=== PATIENT | male | born 1970 | race Caucasian/White ===

== ENCOUNTER 2016-09-12 04:33 | Emergency (ER) | payer OTHER, BC ==
[2016-09-12] MEDS ORDERED: Albuterol Sulfate 2.5 mg/3 ml Neb ONE ×2 (05:06→05:31)
[2016-09-12] MEDS ORDERED: Magnesium Sulfate 2 GM/NS 0.9% 50 ML BAG ONE (05:06)
[2016-09-12] MEDS ORDERED: methylPREDNISolone Sod Succ/PF 125 MG/2 ML VIAL ONE (05:06)
--- NOTE | 2016-09-12 07:37 | RAD ---
PORTABLE CHEST 1 VIEW: DATE: 09/12/16. TIME: 5:03 a.m. HISTORY: Wheezing. FINDINGS: The heart size is normal. The lungs are expanded without focal areas of consolidation, pneumothorax , or pleural effusions. IMPRESSION: No acute process. POS: [facility]
== END 2016-09-12 06:20 | disposition home or self-care (01) ==
LOC: MADERS 04:33
DX: J45.901 Unspecified asthma with (acute) exacerbation (principal); K21.9 Gastro-esophageal reflux disease without esophagitis; I10 Essential (primary) hypertension; Z79.899 Other long term (current) drug therapy
CPT/HCPCS: 71010; 96365; 96375; J2930; J3475; J7611

== ENCOUNTER 2020-05-15 07:12 | Emergency (ER) | payer BC, OTHER ==
[2020-05-15] MEDS ORDERED: Dexamethasone 4 MG TAB ONE (08:12)
[2020-05-15] MEDS ORDERED: Famotidine 20 MG TAB ONE (08:12)
[2020-05-15] MEDS ORDERED: diphenhydrAMINE 25 MG CAP ONE (08:12)
[2020-05-15] MEDS ORDERED: Dexamethasone 4 mg/ml Vial ONE (08:12)
== END 2020-05-15 09:00 | disposition home or self-care (01) ==
LOC: MADERS 07:12
DX: K12.2 Cellulitis and abscess of mouth (principal); K21.9 Gastro-esophageal reflux disease without esophagitis; I10 Essential (primary) hypertension; J45.909 Unspecified asthma, uncomplicated; Z79.899 Other long term (current) drug therapy
CPT/HCPCS: 87081; 87430; 99283; J1100; J8540; Q0163